=== PATIENT | male | born 1950 | race Caucasian/White ===

== ENCOUNTER → 2020-07-22 | Outpatient (CLI) | payer MEDICARE, BC, SELFPAY ==
[2020-07-22 10:31] LABS: Absolute Lymphocyte Count 1.03 X10^3/uL (0.83-4.51); Absolute Neutrophil Count 3.2 X10^3/uL (2.0-7.7); Basophil# 0.04 X10^3/uL; Basophil% 0.8 % (0-1); Hematocrit 38.6 % (40-54); Hemoglobin 12.7 g/dL (13.0-16.5); Lymphocyte # 1.03 X10^3/ul (4.0); Lymphocyte % 20.8 % (19-41); Mean Corp Hgb Conc 32.9 g/dL (32-36); Mean Corpuscular Hgb 29.9 pg (27.0-32.0); Mean Corpuscular Volume 90.8 fL (80-94); Mean Platelet Vol. 9.6 fl (6.2-12.0); Monocyte% 10.1 % (0-10); NRBC Flagged by Analyzer 0 % (0-5); Neutrophil # 3.18 X10^3/uL (2.7-7.7); Neutrophil % 64.1 % (47-70); Platelet Count 207 K/mm3 (150-450); RBC Distribution Width CV 12.3 % (11.6-14.6); RBC Distribution Width SD 40.5 fl (35.1-43.9); Red Blood Count 4.25 M/mm3 (4.6-6.2)
[2020-07-22 11:07] LABS: Anion Gap 6 (5-15); BUN 20 mg/dL (7-18); Calcium,Total 8.6 mg/dL (8.5-10.1); Chloride 107 mmol/L (98-107); Creatinine, Serum 1.05 mg/dL (0.70-1.30); EST Glomerular Filtration Rate 74 mL/min (>60); Est Glom Filt Rate - Afr Amer 89 mL/min (>60); Glucose 100 mg/dL (74-106); Potassium 3.9 mmol/L (3.5-5.1); Sodium Level 138 mmol/L (136-145)
== END | disposition home or self-care (01) ==
LOC: MTLAB 07:20
PROVIDERS: PCP Family Medicine; Referring Provider Specialist; Visit Provider Specialist
DX: Z01.818 Encounter for other preprocedural examination (principal)
CPT/HCPCS: 36415; 80048; 85025

== ENCOUNTER → 2020-07-25 | Outpatient (CLI) | payer MEDICARE, BC, SELFPAY | END | disposition home or self-care (01) | LOC: MTDU 09:52 | PROVIDERS: PCP Family Medicine; Referring Provider Specialist; Visit Provider Specialist | DX: Z11.59 Encounter for screening for other viral diseases (principal) | CPT/HCPCS: 87635; 94799; U0003 ==

== ENCOUNTER → 2020-07-28 | Outpatient (CLI) | payer MEDICARE, BC, SELFPAY ==
[2020-07-28 10:03] LABS: Albumin, Serum 3.9 g/dL (3.2-5.0)
== END | disposition home or self-care (01) ==
LOC: MTLAB 07:04
PROVIDERS: PCP Family Medicine; Referring Provider Specialist; Visit Provider Specialist
DX: Z01.812 Encounter for preprocedural laboratory examination (principal)
CPT/HCPCS: 36415; 82040

== ENCOUNTER → 2020-07-31 | Outpatient (CLI) | payer MEDICARE, BC, SELFPAY ==
--- NOTE | 2020-07-31 12:59 | EKG12_ITS ---
Test Reason : PRE OP Blood Pressure : / mmHG Vent. Rate : 065 BPM Atrial Rate : 065 BPM P-R Int : 182 ms QRS Dur : 084 ms QT Int : 410 ms P-R-T Axes : 058 004 029 degrees QTc Int : 426 ms Normal sinus rhythm with sinus arrhythmia Normal ECG No previous ECGs available Confirmed by LAURA ROSAS, SANJEEV ([id number]), business editor LUIS MANUEL COFFEY ([id number] on 07/31/2020 2:29:04 PM Referred By: Jose L Vera Confirmed By:MAYELIN SANCHEZ MD
== END | disposition home or self-care (01) ==
LOC: CVS 12:50
PROVIDERS: PCP Family Medicine; Referring Provider Specialist; Visit Provider Specialist
DX: Z01.818 Encounter for other preprocedural examination (principal)
CPT/HCPCS: 93005

== ENCOUNTER 2022-01-23 08:56 | Emergency (ER) | payer MEDICARE, BC, SELFPAY ==
[2022-01-23 08:58] VITALS: BP 120/85; PULSE 66; RESP 15; TEMP 36; O2SAT 98; BMI 27.1
--- NOTE | 2022-01-23 09:10 | CT_ITS ---
STUDY: CT BRAIN WITHOUT CONTRAST REASON FOR EXAM: Male, 71 years old. Right hand numbness RADIATION DOSAGE (If Supplied By Facility): CTDIvol = ( 44.99 ) mGy, DLP = ( 796.11 ) mGycm TECHNIQUE: Transaxial CT imaging of the brain was performed without administration of intravenous contrast material. Individualized dose optimization techniques were used for this CT. COMPARISON: No relevant priors. FINDINGS: Normal soft tissue structures. Normal calvarium. There is moderate cerebral atrophy with widening of the extra-axial spaces and ventricular dilatation. There are areas of decreased attenuation within the white matter tracts of the supratentorial brain, consistent with microvascular disease changes. Focal 9 mm hyperdensity consistent with hemorrhage in the posterior left parietal region. Probable chronic or less likely a subacute right posterior parietal infarct. Normal basal ganglia and thalami. Normal brainstem. Normal cerebellum. Mucosal thickening of the ethmoid sinuses bilaterally. CT/Brain/Head without Contrast IMPRESSION: 1. Small focal hemorrhagic lesion in the posterior right parietal region. 2. 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 3. Chronic involutional changes of the brain. 4. Sinus disease. 5. Further evaluation with MRI of the brain might be of value. N.B. : The above Results were Read Back by Silverio Godfrey to Ceasar Moulton;[phone], and understanding confirmed on 01/23/2022 10:00:13 (ET). Electronically Signed: Silverio Godfrey, at 9:49 EST ,
--- NOTE | 2022-01-23 09:11 | EDS_ITS ---
HPI History of Present Illness HPI Narrative: Patient presents with his because of right wrist drop that she noticed this morning approximately 2 hours ago. He has history of cerebral amyloid angiopathy, and had prior brain bleeding. This diagnosis was made 2 years ago because of cognitive decline. This has continued. His was concerned because he was unable to eat his cereal this morning and had limited use of his right hand. Patient denies any headaches. No numbness or tingling. No pain in his arm or wrist. No recent trauma. He presents for evaluation because he is unable to straighten out his wrist on the right. He is right-hand dominant. Chief Complaint: Upper Extremity Injury [facility] Medical History (Updated 01/23/22 @ 11:27 by Ceasar Moulton MD) Vascular dementia Home Medications hydrochlorothiazide 25 mg PO DAILY 01/23/22 [History Last Taken Unknown] mirtazapine 15 mg PO QHS 01/23/22 [History Last Taken Unknown] sertraline 150 mg PO QHS 01/23/22 [History Last Taken Unknown] simvastatin 20 mg PO QHS 01/23/22 [History Last Taken Unknown] Allergy/AdvReac Type Severity Reaction Status Date / Time aspirin Allergy Other Verified 01/23/22 11:13 Social History Smoking Status: Never smoker ROS ROS ED ROS Narrative Constitutional: No fever, no chills. HEENT: No sore throat. No neck pain. No loss of vision. No rhinorrhea. Cardiovascular: No chest pain. No palpitations. No pedal edema. Respiratory: No cough, no shortness of breath. Abdominal: No abdominal pain. No nausea. No vomiting. Genitourinary: No dysuria. No hematuria. Musculoskeletal: No myalgias. No arthralgias. Neurologic: No headaches. No dizziness. No lightheadedness. Loss of coordination of right hand, inability to straighten out wrist/rear flex. Skin: No rash. No change in color. Psychiatric: No depression. No anxiety. EXAM Physical Exam Narrative Exam Narrative: Afebrile. Vital signs noted. HEENT: Normocephalic. Atraumatic. PERRL, EOMI. Neck soft and supple. No point tenderness or step off. Cardiovascular: Regular rate and rhythm. No murmurs, rubs, or gallops appreciated. Respiratory: No tachypnea. Lungs clear to auscultation bilaterally. Gastrointestinal: Abdomen soft, nontender, with normoactive bowel sounds. No rebound or guarding. Neurological: Awake. Alert. Full range of motion right upper extremity at shoulder and elbow. Right wrist drop noted. Palpable radial pulse. Able to oppose thumb. Able to adduct and abduct fingers. Skin: No rash. Normal color. No pallor. Musculoskeletal: No pedal edema. Full range of motion extremities. Const Vital Signs: 01/23/22 08:58 Temperature 96.8 F L Temperature Source Temporal Pulse Rate 66 Respiratory Rate 15 Blood Pressure 120/85 H Blood Pressure Mean 96 Pulse Ox 98 Oxygen Delivery Method Room Air MDM MDM MDM Narrative Medical decision making narrative: With concern of his previous brain bleed, I will obtain a CT of the head without contrast. I received a call from the ra diologist. He does have an acute left-sided posterior parietal hemorrhage. It is approximately 9 mm. He does have evidence of old infarction/hemorrhages. I discussed the patient with [facility] neurosurgery. They have accepted him in transfer. I will obtain baseline laboratories along with rapid Covid. He will be transferred to the neurosurgical ICU for closer monitoring. Blood pressure currently 120/85, we were advised to keep it below 160. Disposition is transfer in stable condition. Discharge Plan Triage Chief Complaint: Upper Extremity Injury ED Provider: Ceasar Moulton Dx/Rx/DC Orders Clinical Impression: Cerebral amyloid angiopathy, Intraparenchymal hemorrhage of brain, Right wrist drop Prescriptions: No Action sertraline 100 mg tablet 150 mg PO QHS RF: 0 simvastatin 20 mg tablet 20 mg PO QHS RF: 0 hydrochlorothiazide 25 mg tablet 25 mg PO DAILY RF: 0 mirtazapine 15 mg tablet 15 mg PO QHS RF: 0 Primary Care Provider: Lavon Ferrera Referrals: Lavon Ferrera MD [Primary Care Provider] - Disposition Disposition: Acute Care Hospital Discharge Location: [facility] [place] Discharge Date/Time: 01/23/22 11:55
[2022-01-23 10:36] LABS: Absolute Lymphocyte Count 1.22 X10^3/uL (0.83-4.51); Absolute Neutrophil Count 4.1 X10^3/uL (2.0-7.7); Basophil# 0.05 X10^3/uL; Basophil% 0.8 % (0-1); Eosinophil# 0.15 X10^3/uL; Eosinophils% 2.5 % (0-5); Hematocrit 36.1 % (40-54); Hemoglobin 12.7 g/dL (13.0-16.5); Lymphocyte # 1.22 X10^3/ul (0.83-4.51); Lymphocyte % 20.2 % (19-41); Mean Corp Hgb Conc 35.2 g/dL (32-36); Mean Corpuscular Hgb 30.7 pg (27.0-32.0); Mean Corpuscular Volume 87.2 fL (80-94); Mean Platelet Vol. 9.1 fl (6.2-12.0); Monocyte% 8.3 % (0-10); NRBC Flagged by Analyzer 0 % (0-5); Neutrophil # 4.11 X10^3/uL (2.7-7.7); Neutrophil % 67.9 % (47-70); Platelet Count 198 K/mm3 (150-450); RBC Distribution Width CV 11.9 % (11.6-14.6); RBC Distribution Width SD 38.3 fl (35.1-43.9); Red Blood Count 4.14 M/mm3 (4.6-6.2); White Blood Count 6.1 K/mm3 (4.4-11.0)
[2022-01-23 10:52] LABS: ALB/GLOB Ratio 0.9 RATIO (0.9-2.4); AST(SGOT) 16 U/L (15-37); Alanine Aminotransfer ALT/SGPT 20 U/L (16-61); Albumin, Serum 3.3 g/dL (3.2-5.0); Alkaline Phosphatase 73 U/L (45-117); Anion Gap 4 (5-15); BUN 14 mg/dL (7-18); BUN/Creat Ratio 14.9 RATIO (10-20); Calcium,Total 8.9 mg/dL (8.5-10.1); Chloride 105 mmol/L (98-107); Creatinine, Serum 0.94 mg/dL (0.70-1.30); EST Glomerular Filtration Rate 84 mL/min (>60); Est Glom Filt Rate - Afr Amer 102 mL/min (>60); Estimated Creatinine Clearance 77.97 ml/min; Globulin 3.5 g/dL (2.2-4.2); Glucose 104 mg/dL (74-106); Potassium 3.3 mmol/L (3.5-5.1); Protein, Total 6.8 g/dL (6.4-8.2); Sodium Level 137 mmol/L (136-145)
[2022-01-23 11:24] VITALS: BP 109/71; PULSE 59; RESP 12; O2SAT 95
== END 2022-01-23 11:55 | disposition short-term general hospital (02) ==
PROVIDERS: Emergency Provider Emergency Medicine; PCP Family Medicine; Visit Provider Emergency Medicine
DX: I62.9 Nontraumatic intracranial hemorrhage, unspecified (principal); I68.0 Cerebral amyloid angiopathy; Z79.899 Other long term (current) drug therapy
CPT/HCPCS: 70450; 80053; 85025; 87426; 99285; A4216

== ENCOUNTER → 2022-08-30 | Outpatient (REF) | payer MEDICARE, BC, SELFPAY ==
[2022-08-30 09:56] LABS: Hematocrit 41.1 % (40-54); Hemoglobin 13.4 g/dL (13.0-16.5); Mean Corp Hgb Conc 32.6 g/dL (32-36); Mean Corpuscular Hgb 30.1 pg (27.0-32.0); Mean Corpuscular Volume 92.4 fL (80-94); Mean Platelet Vol. 9.8 fl (6.2-12.0); Platelet Count 180 K/mm3 (150-450); RBC Distribution Width CV 13.2 % (11.6-14.6); RBC Distribution Width SD 44.7 fl (35.1-43.9); Red Blood Count 4.45 M/mm3 (4.6-6.2); White Blood Count 6.5 K/mm3 (4.4-11.0)
[2022-08-30 10:25] LABS: AST(SGOT) 19 U/L (15-37); Alanine Aminotransfer ALT/SGPT 23 U/L (16-61); Albumin, Serum 3.6 g/dL (3.2-5.0); Alkaline Phosphatase 60 U/L (45-117); Anion Gap 9 (5-15); BUN 17 mg/dL (7-18); BUN/Creat Ratio 19.1 RATIO (10-20); Calcium,Total 8.9 mg/dL (8.5-10.1); Chloride 105 mmol/L (98-107); Creatinine, Serum 0.89 mg/dL (0.70-1.30); EST Glomerular Filtration Rate 89 mL/min (>60); Est Glom Filt Rate - Afr Amer 108 mL/min (>60); Globulin 3.5 g/dL (2.2-4.2); Glucose 94 mg/dL (74-106); Potassium 3.7 mmol/L (3.5-5.1); Protein, Total 7.1 g/dL (6.4-8.2); Sodium Level 138 mmol/L (136-145)
[2022-08-30 10:46] LABS: Valproic Acid (Depakene) Level 23 ug/mL (50-100)
== END ==
LOC: OLS.BROOKB 05:00
PROVIDERS: PCP Family Medicine
DX: I10 Essential (primary) hypertension (principal); F33.9 Major depressive disorder, recurrent, unspecified; E78.5 Hyperlipidemia, unspecified
CPT/HCPCS: 36415; 80053; 80164; 85027

== ENCOUNTER 2022-12-03 18:09 | Emergency (ER) | payer MEDICARE, BC, SELFPAY ==
[2022-12-03 18:11] VITALS: BP 148/67; PULSE 120; RESP 36; TEMP 37.2; O2SAT 95; BMI 21.7
[2022-12-03] MEDS: Ziprasidone IM 20 MG/ML VIAL IM (18:13)
--- NOTE | 2022-12-03 18:32 | ED.RN ---
Addendum entered by Lesvia Love 12/03/22 18:39: PT ARRIVED VIA EMS AND WAS COMBATIVE AND YELLING UPON ARRIVAL. PT LUNGED TOWARDS ONE OF THE EMS STAFF AT WHICH TIME DR MCCALL WAS NOTIFIED OF THE SITUATION AND A VERBAL ORDER FOR GEODON WAS OBTAINED. PT CONTINUED TO THREATEN TO PUNCH EMS AND GET OFF THE COT. THERE WAS NOT A OPEN BED AT THE TIME SO GEODON WAS GIVEN ON THE COT WHILE EMS AND STAFF RESTRAINED PT TO ENSURE ALL SAFETY. PT WAS THEN TAKEN BACK TO RM 10 AND PLACED ON A BED. PT WAS PLACED IN RESTRAINTS HE CONTINUED TO FIGHT AND THREATEN TO PUNCH AND INJURY ALL IN THE ROOM. Original Note: PT ARRIVED VIA EMS AND WAS COMBATIVE AND YELLING UPON ARRIVAL. PT LUNGED TOWARDS ONE OF THE EMS STAFF, AT THIS TIME DR MCCALL WAS INFORMED OF THE SITUATION AND VERBAL ORDER FOR GEODON WAS OBTAINED. PT CONTINUED TO THREATEN TO PUNCH EMS AND
--- NOTE | 2022-12-03 18:33 | ED.RN ---
and daughter aggressive with staff. forced their way into the room while staff was attempting to settle pt. and daughter yelling at staff, he was not supposed to be here, he was supposed to go to [facility]. states we have cameras in the room and we watched what was happening. then states to pt, we wont let them do to you what they did to you last time. looks at staff, i have connections and we'll get him out of here right away.
--- NOTE | 2022-12-03 18:39 | ED.RN ---
demeaning to staff stating that she wants someone who knows how to take care of him or will it be an ER
--- NOTE | 2022-12-03 18:56 | ED.RN ---
and daughter at bedside. empathy given regarding their situation but again reminded them, that the ED staff will take care of him while trying our best to keep everyone safe, but that we had no control over what facility he was brought to or that [facility] did not call them. The daughter stated that us ED staff have to listen to them rant. Daughter asked this RN if an ED doctor will see him or, someone who is more adept to take care of his situation. Kindly reminded her that the ED physicians are very educated. Support again provided, explained the medication Geodon that was given, checked pt's restraints, and relayed statements that were made to studio operations engineer in charge.
--- NOTE | 2022-12-03 19:18 | EDS_ITS ---
HPI History of Present Illness Chief Complaint: Confusion Informant: patient, spouse/S.O., family and SNF (I reviewed the chart including diagnosis and meds from the long-term.) Narrative Narrative: He has hadThis patient evidently got agitated at long-term. He does have advanced dementia. Memory unit. Family was with him today for up to 3 or so hours. His showed up there at around 1230 [id number]. They all left likely somewhere around 3 or 4. Patient was acting totally normally with them. He was within normal range. He had played cards. He does have significant dementia but was acting his normal self. They state they have a video in his room so they can watch him. He evidently left the room to go see an [employer]. He evidently came back in the room and he looked upset. He was hitting the TV and other items. Per the family he then refused his as needed meds from the staff. Family was not called at that point. It ends up that EMS was called and he was transported here. Family feels that he does get aggressive like this on occasion. This is why he was no longer able to stay at home. But he does not have these frequently. He started going to his current facility in June on a daily basis. He moved in in July. He had an episode like this in August and at the end of September. Usually if he gets as needed meds in he will get Colmer. He is now calm after getting Geodon. he states he feels fine. I also discussed work-up with the family. They do not want a CAT scan because they state there is nothing on that that they would intervene on. And he is now acting normally. They are comfortable with urinalysis and blood work because we talked about UTIs and hyponatremia etc. that could cause some of this behavior and is correctable. However I doubt these will be markedly abnormal because the patient is now back to his baseline. [facility] Medical History (Updated 12/03/22 @ 22:[address] Edgar Mejias MD) Essential hypertension Hyperlipemia Major depressive disorder Malignant neoplasm of prostate Vascular dementia Home Medications hydrochlorothiazide 25 mg tablet 25 mg PO DAILY 01/23/22 [History Last Taken Unknown] mirtazapine 15 mg tablet 15 mg PO QHS 01/23/22 [History Last Taken Unknown] sertraline 100 mg tablet 100 mg PO DAILY 01/23/22 [History Last Taken Unknown] simvastatin 20 mg tablet 20 mg PO QHS 01/23/22 [History Last Taken Unknown] acetaminophen 500 mg capsule 500 mg PO BID 12/03/22 [History Last Taken Unknown] cholecalciferol (vitamin D3) 125 mcg (5,000 unit) tablet (Vitamin D3) 125 mcg PO DAILY 12/03/22 [History Last Taken Unknown] divalproex 125 mg capsule,delayed release sprinkle 125 mg PO DAILY 12/03/22 [History Last Taken Unknown] divalproex 250 mg tablet,delayed release 250 mg PO QHS 12/03/22 [History Last Taken Unknown] hydroxyzine pamoate 25 mg capsule 25 mg PO QHS 12/03/22 [History Last Taken Unknown] hydroxyzine pamoate 25 mg capsule 25 mg PO TID PRN Agitation 12/03/22 [History Last Taken Unknown] quetiapine 25 mg tablet 12.5 mg PO Q6H PRN Agitation 12/03/22 [History Last Taken Unknown] quetiapine 25 mg tablet 25 mg PO BID 12/03/22 [History Last Taken Unknown] Allergy/AdvReac Type Severity Reaction Status Date / Time aspirin Allergy Other Verified 12/03/22 18:10 Social History Smoking Status: Never smoker ROS ROS ED ROS Narrative Review of systems is limited due to the patient's dementia. But per family there have been no issues recently. EXAM Physical Exam Const Vital Signs: 12/03/22 18:11 12/03/22 18:19 12/03/22 20:16 Temperature 99 F Temperature Source Temporal Pulse Rate 120 H 72 Respiratory Rate 36 H 20 H Respiratory Effort Normal Non-Labored Respiratory Pattern Normal Blood Pressure 148/67 H 111/55 L Blood Pressure Mean 94 73 Pulse Ox 95 93 Oxygen Delivery Method Room Air Room Air Positive well nourished and well developed Constitutional Narrative: Patient is now out of restraints. He is resting quietly. But he will talk to you. He is clear. Nontoxic. General Appearance ED: well developed and NAD HEENT Reports moist mucous membranes; Denies dry mucous membranes Mouth ED: No dry mucous membranes Mouth: No dry mucous membranes Eyes General Eye ED: Negative for scleral icterus Neck supple Chest Wall inspection of chest normal Resp normal respiratory effort and clear to auscultation bilaterally Cardio regular rate and regular rhythm Rate: Negative for bradycardia or tachycardic GI normal to inspection, nondistended, normoactive bowel sounds and non-distended Back/Spine no CVA tenderness Extremity normal to inspection General Extremety ED: Negative for edema or tenderness General Extremity: Negative for edema Neuro Neuro Narrative: Awake alert and at baseline per family. Skin no rashes or lesions noted and no wounds MDM MDM MDM Narrative Medical decision making narrative: Patient's and daughter do not want CT scan of this patient's head. Since he is at baseline and has no trauma to his head I think that is reasonable. His CBC was done that showed normal white count. Hemoglobin is minimally low at 11.9 which is not the source of his symptoms. Platelets are normal. Electrolytes show normal studies other than mild elevation in BUN at 20. Glucose was 123. Urinalysis was done that showed no sign of infection or blood. We contacted his long-term staff. They are willing to take him back. He is rechecked. He is still calm. His heart rate is down. He is awake alert. Lab Data Attestation: I reviewed the patient's lab results. Labs: Laboratory Results - last 24 hr 12/03/22 12/03/22 12/03/22 19:29 19:29 19:29 WBC 7.2 RBC 3.97 L Hgb 11.9 L Hct 35.2 L MCV 88.7 MCH 30.0 MCHC 33.8 RDW Std Deviation 41.8 RDW Coeff of Theodore 12.8 Plt Count 161 MPV 9.2 Immature Gran % (Auto) 0.400 Neut % (Auto) 74.7 H Lymph % (Auto) 12.7 L Payne % (Auto) 9.6 Eos % (Auto) 1.8 Baso % (Auto) 0.8 Absolute Neuts (auto) 5.4 Absolute Lymphs (auto) 0.91 Nucleated RBC % 0 Sodium 143 Potassium 3.7 Chloride 108 H Carbon Dioxide 25.0 Anion Gap 10 BUN 20 H Creatinine 1.08 Estim Creat Clear Calc 62.53 Est GFR (MDRD) Af Amer 86 Est GFR (MDRD) Non-Af 71 BUN/Creatinine Ratio 18.5 Glucose 123 H Calcium 8.8 Urine Color Urine Clarity Urine pH Ur Specific Campbell Urine Protein Urine Glucose (UA) Urine Ketones Urine Occult Blood Urine Nitrite Urine Bilirubin Urine Urobilinogen Ur Leukocyte Esterase Urine RBC Urine WBC Ur Squamous Epith Cells Urine Bacteria Urine Mucus Valproic Acid 22 L 12/03/22 19:45 WBC RBC Hgb Hct MCV MCH MCHC RDW Std Deviation RDW Coeff of Theodore Plt Count MPV Immature Gran % (Auto) Neut % (Auto) Lymph % (Auto) Payne % (Auto) Eos % (Auto) Baso % (Auto) Absolute Neuts (auto) Absolute Lymphs (auto) Nucleated RBC % Sodium Potassium Chloride Carbon Dioxide Anion Gap BUN Creatinine Estim Creat Clear Calc Est GFR (MDRD) Af Amer Est GFR (MDRD) Non-Af BUN/Creatinine Ratio Glucose Calcium Urine Color Yellow Urine Clarity Clear Urine pH 6.0 Ur Specific Campbell 1.015 Urine Protein Negative Urine Glucose (UA) Normal Urine Ketones Negative Urine Occult Blood Negative Urine Nitrite Negative Urine Bilirubin Negative Urine Urobilinogen Normal Ur Leukocyte Esterase Negative Urine RBC 0-5 SEEN Urine WBC 0 SEEN Ur Squamous Epith Cells 0 SEEN Urine Bacteria 0 SEEN Urine Mucus 0 SEEN Valproic Acid Discharge Plan Triage Chief Complaint: Confusion Other Complaint: General Illness ED Provider: Edgar Mejias Dx/Rx/DC Orders Clinical Impression: Agitation, History of dementia Instructions: ED DEMENTIA Alzheimer's Prescriptions: No Action sertraline 100 mg tablet 100 mg PO DAILY simvastatin 20 mg tablet 20 mg PO QHS hydrochlorothiazide 25 mg tablet 25 mg PO DAILY mirtazapine 15 mg tablet 15 mg PO QHS quetiapine 25 mg Tablet 12.5 mg PO Q6H PRN (Reason: Agitation) quetiapine 25 mg Tablet 25 mg PO BID divalproex 250 mg Tablet,Delayed Release (Dr/Ec) 250 mg PO QHS divalproex 125 mg Capsule, Delayed Rel Sprinkle 125 mg PO DAILY acetaminophen 500 mg Capsule 500 mg PO BID hydroxyzine pamoate 25 mg Capsule 25 mg PO QHS hydroxyzine pamoate 25 mg Capsule 25 mg PO TID PRN (Reason: Agitation) cholecalciferol (vitamin D3) [Vitamin D3] 125 mcg (5,000 unit) Tablet 125 mcg PO DAILY Primary Care Provider: Lavon Ferrera Referrals: Lavon Ferrera MD [Primary Care Provider] - 3-5 Days if not improving Disposition Disposition: Longterm Facility Discharge Location: [facility]
[2022-12-03 19:35] LABS: Absolute Lymphocyte Count 0.91 X10^3/uL (0.83-4.51); Absolute Neutrophil Count 5.4 X10^3/uL (2.0-7.7); Basophil# 0.06 X10^3/uL; Basophil% 0.8 % (0-1); Eosinophil# 0.13 X10^3/uL; Eosinophils% 1.8 % (0-5); Hematocrit 35.2 % (40-54); Hemoglobin 11.9 g/dL (13.0-16.5); Lymphocyte # 0.91 X10^3/ul (0.83-4.51); Lymphocyte % 12.7 % (19-41); Mean Corp Hgb Conc 33.8 g/dL (32-36); Mean Corpuscular Volume 88.7 fL (80-94); Mean Platelet Vol. 9.2 fl (6.2-12.0); Monocyte# 0.69 X10^3/uL; Monocyte% 9.6 % (0-10); NRBC Flagged by Analyzer 0 % (0-5); Neutrophil # 5.37 X10^3/uL (2.7-7.7); Neutrophil % 74.7 % (47-70); Platelet Count 161 K/mm3 (150-450); RBC Distribution Width CV 12.8 % (11.6-14.6); RBC Distribution Width SD 41.8 fl (35.1-43.9); Red Blood Count 3.97 M/mm3 (4.6-6.2); White Blood Count 7.2 K/mm3 (4.4-11.0)
[2022-12-03 19:48] LABS: Bacteria 0 SEEN /hpf (None Seen); Mucous, Urine 0 SEEN /hpf (<or=2+); Squamous Epithelial Cells - UA 0 SEEN /hpf (0-5); White Blood Cells 0 SEEN /hpf (0-5)
[2022-12-03 19:49] LABS: Anion Gap 10 (5-15); BUN 20 mg/dL (7-18); BUN/Creat Ratio 18.5 RATIO (10-20); Calcium,Total 8.8 mg/dL (8.5-10.1); Chloride 108 mmol/L (98-107); Creatinine, Serum 1.08 mg/dL (0.70-1.30); EST Glomerular Filtration Rate 71 mL/min (>60); Est Glom Filt Rate - Afr Amer 86 mL/min (>60); Estimated Creatinine Clearance 62.53 ml/min; Glucose 123 mg/dL (74-106); Potassium 3.7 mmol/L (3.5-5.1); Sodium Level 143 mmol/L (136-145)
[2022-12-03 19:51] LABS: Valproic Acid (Depakene) Level 22 ug/mL (50-100)
[2022-12-03 20:05] LABS: Color, Urine Yellow (Yellow); Glucose, Dipstick Normal (Normal); Ketone-Dipstick Negative (Negative); Leukocyte Esterase-Dipstick Negative /ul (Negative); Nitrite-Dipstick Negative (Negative); Occult Blood-Urine Negative /ul (Negative); Protein-Dipstick Negative (Negative); Specific Gravity, Urine 1.015 (1.002-1.030); Urine Bilirubin Dipstick Negative (Negative); Urine Clarity Clear (Clear); Urine Urobilinogen Normal (Normal)
[2022-12-03 20:11] LABS: Red Blood Cells-Urine 0-5 SEEN /hpf (0-5)
[2022-12-03 20:16] VITALS: BP 111/55; PULSE 72; RESP 20; O2SAT 93
--- NOTE | 2022-12-03 20:24 | ED.RN ---
called Tea at [facility] to verify evening meds. pt is drowsy, will assess to see if can swallow safely.
--- NOTE | 2022-12-03 20:50 | ED.RN ---
This RN confirmed with Tea at [facility] that they are willing to take patient back as long as family would be willing to sit with him for an hour or so to help him readjust back.
[2022-12-03] MEDS: Sertraline 100 MG Tablet PO (21:15)
[2022-12-03] MEDS: Atorvastatin Calcium 10 MG Tablet PO (21:15)
[2022-12-03] MEDS: Mirtazapine 15 MG Tablet PO (21:15)
[2022-12-03] MEDS: QUEtiapine 25 MG Tablet PO (21:15)
[2022-12-03] MEDS: Divalproex Sodium 250 MG Tablet PO (21:16)
[2022-12-03] MEDS: hydrOXYzine PAM 25 MG Capsule PO (21:16)
[2022-12-03] MEDS: Acetaminophen 500 MG Tablet PO (21:19)
[2022-12-03 22:18] VITALS: PULSE 68; RESP 15; O2SAT 98
== END 2022-12-03 22:19 | disposition skilled nursing facility (03) ==
PROVIDERS: Emergency Provider Emergency Medicine; PCP Family Medicine; Visit Provider Emergency Medicine
DX: R45.1 Restlessness and agitation (principal); G30.9 Alzheimer's disease, unspecified; R41.0 Disorientation, unspecified; F02.811 Dementia in other diseases classified elsewhere, unspecified severity, with agitation; I10 Essential (primary) hypertension; E78.5 Hyperlipidemia, unspecified
CPT/HCPCS: 80048; 80164; 81001; 85025; 87086; 96372; 99285; P9612